=== PATIENT | male | born 1965 | race Caucasian/White ===

== ENCOUNTER → 2019-09-09 09:56 | Outpatient (BNVA) | payer MEDICARE, MEDICAID, SELFPAY | PROVIDERS: Family Provider Family Medicine; PCP Family Medicine; Visit Provider Specialist | DX: F31.9 Bipolar disorder, unspecified (principal); G40.309 Generalized idiopathic epilepsy and epileptic syndromes, not intractable, without status epilepticus; F81.9 Developmental disorder of scholastic skills, unspecified; D69.6 Thrombocytopenia, unspecified | CPT/HCPCS: 99214 ==

== ENCOUNTER 2019-09-09 10:58 | Outpatient (CLI) | payer MEDICARE, MEDICAID, SELFPAY ==
[2019-09-09 11:34] LABS: Basophils % 0.3 %; Eosinophils # 0.3 10^3/uL (0.0-0.8); Eosinophils % 3.8 %; Hematocrit 39.8 % (42.0-52.0); Hemoglobin 12.2 g/dL (11.7-16.6); Lymphocytes # 1.5 10^3/uL (0.8-4.8); Lymphocytes % 21.3 %; Mean Corpuscular HGB Conc 30.7 g/dL (30.0-36.0); Mean Corpuscular Hemoglobin 29.7 pg (28.0-34.0); Mean Corpuscular Volume 96.8 fL (80-94); Mean Platelet Volume 13.2 fL (7.4-10.4); Monocytes # 0.5 10^3/uL (0.2-0.9); Neutrophils # 4.7 10^3/uL (1.8-7.7); Neutrophils % 67.2 %; Nucleated Red Blood Cells % 0 %; Platelet Count 118 10^3/cmm (130-400); Red Blood Count 4.11 10^6/uL (4.1-5.3); Red Cell Distribution Width 12.3 % (12.1-15.1)
[2019-09-09 12:11] LABS: Alanine Aminotransferase 16 U/L (0-41); Albumin Level 3.7 g/dL (3.5-5.2); Alkaline Phosphatase 60 IU/L (40-130); Anion Gap 12.5 (5-19); Aspartate Amino Transferase 21 U/L (0-40); Blood Urea Nitrogen 12 mg/dL (6-20); Calcium 9.4 mg/dL (8.5-10.5); Carbon Dioxide 27 mmol/L (22-29); Chloride 103 mmol/L (98-107); Globulin 3.8 g/dL (1.3-4.6); Glomerular Filtration Rate 87.6 mL/min (90-130); Glucose 118 mg/dL (65-115); Potassium 4.5 mmol/L (3.5-5.1); Sodium 138 mmol/L (136-145); Thyroid Stimulating Hormone 1.63 uIU/mL (0.27-4.20); Total Bilirubin 0.2 mg/dL (0.15-1.2); Total Protein 7.5 g/dL (6.6-8.7)
[2019-09-09 12:29] LABS: Estmated Average Glucose 123; Hemoglobin A1C 5.9 % (4.0-6.0)
== END 2019-09-09 10:59 | disposition home or self-care (01) ==
LOC: LAB 11:02
PROVIDERS: Family Provider Family Medicine; PCP Family Medicine; Visit Provider Specialist
DX: Z00.00 Encounter for general adult medical examination without abnormal findings (principal)
CPT/HCPCS: 80053; 83036; 84443; 85025

== ENCOUNTER → 2020-03-15 10:57 | Outpatient (BNVA) | payer MEDICARE, MEDICAID, SELFPAY | PROVIDERS: Family Provider Family Medicine; PCP Family Medicine; Visit Provider Specialist | DX: G40.309 Generalized idiopathic epilepsy and epileptic syndromes, not intractable, without status epilepticus (principal) | CPT/HCPCS: 99213 ==

== ENCOUNTER → 2020-09-14 09:36 | Outpatient (BNVA) | payer MEDICARE, MEDICAID, SELFPAY | PROVIDERS: Family Provider Family Medicine; PCP Family Medicine; Visit Provider Specialist | DX: G40.309 Generalized idiopathic epilepsy and epileptic syndromes, not intractable, without status epilepticus (principal); D69.6 Thrombocytopenia, unspecified | CPT/HCPCS: 36415; 85025; 99214 ==

== ENCOUNTER 2020-09-14 11:54 | Outpatient (CLI) | payer MEDICARE, MEDICAID, SELFPAY ==
[2020-09-14 12:49] LABS: Basophils % 0.6 %; Eosinophils # 0.3 10^3/uL (0.0-0.8); Eosinophils % 4.2 %; Hematocrit 39.6 % (42.0-52.0); Hemoglobin 12.4 g/dL (11.7-16.6); Lymphocytes # 1.9 10^3/uL (0.8-4.8); Lymphocytes % 26.4 %; Mean Corpuscular HGB Conc 31.3 g/dL (30.0-36.0); Mean Corpuscular Hemoglobin 30.3 pg (28.0-34.0); Mean Corpuscular Volume 96.8 fL (80-94); Mean Platelet Volume 12.9 fL (7.4-10.4); Monocytes # 0.5 10^3/uL (0.2-0.9); Monocytes % 7.3 %; Neutrophils # 4.33 10^3/uL (1.8-7.7); Neutrophils % 61.1 %; Nucleated Red Blood Cells % 0 %; Platelet Count 124 10^3/cmm (130-400); Red Blood Count 4.09 10^6/uL (4.1-5.3); Red Cell Distribution Width 12.3 % (12.1-15.1); White Blood Count 7.1 10^3/uL (4.0-10.0)
== END 2020-09-14 11:55 | disposition home or self-care (01) ==
LOC: LAB 11:59
PROVIDERS: Family Provider Family Medicine; PCP Family Medicine; Visit Provider Specialist
DX: G40.309 Generalized idiopathic epilepsy and epileptic syndromes, not intractable, without status epilepticus (principal); D69.6 Thrombocytopenia, unspecified
CPT/HCPCS: 36415; 85025

== ENCOUNTER → 2021-03-15 09:12 | Outpatient (BNVA) | payer MEDICARE, MEDICAID, SELFPAY | PROVIDERS: Family Provider Family Medicine; PCP Family Medicine; Visit Provider Specialist | DX: G40.309 Generalized idiopathic epilepsy and epileptic syndromes, not intractable, without status epilepticus (principal); F32.9 Major depressive disorder, single episode, unspecified | CPT/HCPCS: 99214; 99215 ==

== ENCOUNTER → 2021-07-18 10:35 | Outpatient (BNVA) | payer MEDICARE, MEDICAID, SELFPAY | PROVIDERS: Family Provider Family Medicine; PCP Family Medicine; Visit Provider Specialist | DX: G40.309 Generalized idiopathic epilepsy and epileptic syndromes, not intractable, without status epilepticus (principal); F81.9 Developmental disorder of scholastic skills, unspecified; F32.9 Major depressive disorder, single episode, unspecified | CPT/HCPCS: 99213; 99214 ==

== ENCOUNTER → 2021-12-20 10:35 | Outpatient (BNVA) | payer MEDICARE, MEDICAID, SELFPAY | PROVIDERS: Family Provider Family Medicine; PCP Family Medicine; Visit Provider Specialist | DX: G40.309 Generalized idiopathic epilepsy and epileptic syndromes, not intractable, without status epilepticus (principal); F42.9 Obsessive-compulsive disorder, unspecified; F31.9 Bipolar disorder, unspecified | CPT/HCPCS: 99214; 99215 ==

== ENCOUNTER → 2022-01-22 09:58 | Outpatient (BNVA) | payer MEDICARE, MEDICAID, SELFPAY | PROVIDERS: Family Provider Family Medicine; PCP Family Medicine; Visit Provider Specialist | DX: F32.9 Major depressive disorder, single episode, unspecified (principal); F42.9 Obsessive-compulsive disorder, unspecified; F81.9 Developmental disorder of scholastic skills, unspecified; G40.309 Generalized idiopathic epilepsy and epileptic syndromes, not intractable, without status epilepticus; D69.6 Thrombocytopenia, unspecified | CPT/HCPCS: 99213; 99214 ==

== ENCOUNTER → 2022-07-23 09:24 | Outpatient (BNVA) | payer MEDICARE, MEDICAID, SELFPAY | PROVIDERS: PCP Family Medicine; Visit Provider Specialist | DX: G40.309 Generalized idiopathic epilepsy and epileptic syndromes, not intractable, without status epilepticus (principal); G51.39 Clonic hemifacial spasm, unspecified | CPT/HCPCS: 99213 ==

== ENCOUNTER → 2023-07-16 15:03 | Outpatient (BNVA) | payer MEDICARE, MEDICAID, SELFPAY | PROVIDERS: PCP Family Medicine; Visit Provider Specialist | DX: G40.309 Generalized idiopathic epilepsy and epileptic syndromes, not intractable, without status epilepticus (principal); J44.0 Chronic obstructive pulmonary disease with (acute) lower respiratory infection; J20.9 Acute bronchitis, unspecified | CPT/HCPCS: 99214 ==

== ENCOUNTER → 2024-07-22 08:36 | Outpatient (BNVA) | payer MEDICARE, MEDICAID, SELFPAY | PROVIDERS: PCP Family Medicine; Visit Provider Specialist | DX: G40.309 Generalized idiopathic epilepsy and epileptic syndromes, not intractable, without status epilepticus (principal); J44.0 Chronic obstructive pulmonary disease with (acute) lower respiratory infection; J20.9 Acute bronchitis, unspecified; G31.84 Mild cognitive impairment of uncertain or unknown etiology | CPT/HCPCS: 36415; 80053; 84439; 84443; 85025; 99214 ==

== ENCOUNTER 2024-12-08 18:24 | Inpatient (IN) | payer MEDICARE, SELFPAY ==
[2024-12-08] VITALS (11 sets, daily range): BP systolic 134–171; BP diastolic 60–96; PULSE 81–93; RESP 18–20; TEMP 36.9; O2SAT 94–96; BMI 33.0
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
[2024-12-08 19:31] LABS: Basophils % 0.4 %; Eosinophils # 0.2 10^3/uL (0.0-0.8); Eosinophils % 1.5 %; Lymphocytes # 1.2 10^3/uL (0.8-4.8); Lymphocytes % 11.1 %; Mean Corpuscular Hemoglobin 30.6 pg (27-33); Mean Corpuscular Volume 98.5 fl (82-101); Mean Platelet Volume 12.2 fL (7.4-10.4); Monocytes # 0.6 10^3/uL (0.2-0.9); Monocytes % 5.8 %; Neutrophils # 8.56 10^3/uL (1.8-7.7); Neutrophils % 80.6 %; Nucleated Red Blood Cells % 0 %; Platelet Count 129 10^3/cmm (157-399); Red Blood Count 3.96 10^6/uL (3.85-5.65); Red Cell Distribution Width 12.6 % (12.1-15.1); White Blood Count 10.62 10^3/uL (3.29-11.43)
[2024-12-08 19:51] LABS: Acetaminophen < 5.0 ug/mL (10-30); Alanine Aminotransferase 12 U/L (0-41); Alkaline Phosphatase 67 U/L (40-130); Anion Gap 16.2 (5-19); Aspartate Amino Transferase 17 U/L (0-40); Blood Urea Nitrogen 11 mg/dL (8-23); Calcium 8.9 mg/dL (8.5-10.5); Carbon Dioxide 24 mmol/L (22-29); Chloride 101 mmol/L (98-107); Creatinine Clr Calc Pharmacy 95.0338; Globulin 3.5 g/dL (1.3-4.6); Glomerular Filtration Rate 76.2 mL/min (90-130); Glucose 106 mg/dL (65-115); Osmolality Calculated 284 mOsm/kg (285-295); Potassium 4.2 mmol/L (3.5-5.1); Salicylate < 0.3 mg/dL (3-10); Sodium 137 mmol/L (136-145); Total Bilirubin 0.2 mg/dL (0.15-1.2); Total Protein 7.5 g/dL (6.6-8.7)
[2024-12-08 19:52] LABS: Alcohol Level < 10 mg/dL (0-10)
[2024-12-08] MEDS: ketamine 100 mg/mL Inj 5 mL 417.3 MG IM (20:38)
[2024-12-08] MEDS: LORazepam 1 MG/0.5 ML injection 2 MG IM (20:38)
--- NOTE | 2024-12-08 21:00 | PC.NURSE ---
Upon entering patient room, patient against the wall brandishing a chair in the air with security guards, Gwyn and Jeferson, in front of him. Patient stating I want to leave. Verbal de-escalation attempted with no success. Clemencia Avina RN, Gio, RN, Shukri, RN, Haven, NT, and this nurse at bedside. Chair removed from patient's crime scene evidence technician by security and removed from room. Patient moved to restraint bed using SAFE maneuvers. Orders received from Dr. Deleon for ketamine IM.
[2024-12-09 06:00] VITALS: BP 152/66; PULSE 89; RESP 20; TEMP 37.6; O2SAT 93
[2024-12-09] MEDS: lamoTRIgine 100 mg Tablet PO ×2 (08:21→18:07)
[2024-12-09] MEDS: cholecalciferol (vitamin D3) 1,000 unit Tablet 2000 UNIT PO (08:21)
[2024-12-09] MEDS: levothyroxine 88 mcg Tablet PO (08:21)
[2024-12-09] MEDS: citalopram 20 mg Tablet PO (08:21)
[2024-12-09] MEDS: CLONazepam 0.5 mg Tablet PO (08:21)
[2024-12-09] MEDS: multivitamin therapeutic Tablet 1 TAB PO (08:21)
[2024-12-09] MEDS: cloNIDine 0.1 mg Tablet PO (08:22)
--- NOTE | 2024-12-09 11:22 | PC.OT ---
OT bharath held per nursing
[2024-12-09 14:00] VITALS: BP 131/71; PULSE 78; RESP 16; TEMP 36.3; O2SAT 95
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
[2024-12-09 20:28] VITALS: BP 141/75; PULSE 71; RESP 17; TEMP 36.9; O2SAT 97
[2024-12-09 21:29] VITALS: BP 141/75
[2024-12-09] MEDS: cloNIDine 0.1 mg Tablet 0.2 MG PO (21:29)
[2024-12-09] MEDS: zonisamide 100 MG Capsule 500 MG PO (21:30)
[2024-12-09] MEDS: CLONazepam 1 mg Tablet PO (21:30)
[2024-12-10 06:00] VITALS: BP 119/79; PULSE 78; RESP 17; TEMP 37; O2SAT 97
[2024-12-10 08:35] VITALS: BP 119/79
[2024-12-10] MEDS: cloNIDine 0.1 mg Tablet PO (08:35)
[2024-12-10] MEDS: multivitamin therapeutic Tablet 1 TAB PO (08:35)
[2024-12-10] MEDS: levothyroxine 88 mcg Tablet PO (08:35)
[2024-12-10] MEDS: cholecalciferol (vitamin D3) 1,000 unit Tablet 2000 UNIT PO (08:35)
[2024-12-10] MEDS: CLONazepam 0.5 mg Tablet PO (08:35)
[2024-12-10] MEDS: lamoTRIgine 100 mg Tablet PO ×2 (08:35→17:13)
[2024-12-10 14:00] VITALS: BP 132/70; PULSE 73; RESP 16; TEMP 37.1; O2SAT 95
--- NOTE | 2024-12-10 15:04 | PC.NURSE ---
Instructed patient that mother was here to visit and he said I don't want to see no one . I told him that she is currently visiting with the DrYuridia and she would like to visit with him. He covered his head with the blanket and said No . KALI said patient told her that he said nobody cares.
--- NOTE | 2024-12-10 17:00 | P.NPUPN_ITS ---
Subjective NPU 2 Subjective: Patient presented today reporting that things were going fine. But when he realized he was not going to be discharged he tried to create a stalemate where he was going to refuse to do anything and I would just stay here forever and never go home. We discussed the fact that his mother and I had a lengthy conversation and that she is the guardian and were both in agreement than him having the Invega as a starting point for him getting better and having better self-management is our best plan. We discussed the fact that we just wanted to see if there was any problems or side effects with the medication. We discussed the goal of him taking the medication today and then tomorrow morning and that if there were no problems and he continued to manage his behavior as he has that his guardian/mom would like to take him home and we would be agreeable to that. 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 He ultimately stopped his refusal of the medication and took all of his medications and was able to do this without physical aggression though he did get very frustrated in 1 point. He denied any side effects to his medications. Mental Status Exam 2 MSE Comments: This is an obese white male in hospital scrubs with poor grooming and eye contact. No abnormal movements except for psychomotor retardation and some shakiness. Cooperative with exam in mild to moderate distress. Speech was limited and decreased rate and volume and somewhat childlike. Mood described as okay, affect anxious and guarded. Thought process linear. Thought content: Patient denied suicidal or homicidal ideation, there were no delusions reported or noted, he denied any auditory or visual hallucinations. Attention and concentration were limited and memory was unreliable but none were formally tested. He is alert and oriented times person and place. Insight, judgment and impulse control are impaired intellectual ability is impaired. Vitals/I&O/Wt Last Vital Signs Temp 98.7 F 12/10/24 14:00 Pulse 73 12/10/24 14:00 Resp 16 12/10/24 14:00 BP 132/70 12/10/24 14:00 Pulse Ox 95 12/10/24 14:00 O2 Del Method Room Air 12/10/24 06:00 O2 Flow Rate 2 12/08/24 22:26 Weight last 48 hrs Weight 104.326 kg Data NPU 12/08/24 19:17 12/08/24 19:17 A&P Assessment and plan (1) Obsessive compulsive disorder: (2) Bipolar affective disorder: (3) Aggressive behavior: (4) Self-harming behavior: (5) Intellectual disability: Plan This is a 59-year-old white male with intellectual disability and the common issues with poor impulse control and low frustration tolerance that has led to aggression and agitation that are not manageable by his mother at home. He is likely in need of some changes in medications. Consideration of tapering or discontinue of the Klonopin which is problematic as he gets older. Additionally adding a more stable on potent mood stabilizer/antipsychotic would also be appropriate. He is a poor historian and we will need to lean on his guardian for assistance. 1. Continue current medication. Likely begin tapering Klonopin and initiate either Abilify or Invega after approval from mother. Invega 3 mg p.o. daily. 2. Encourage individual, group and milieu therapy. 3. Continue every 15 minute checks for safety. 4. Obtain collateral information. Had a lengthy discussion with his guardian/80-year-old mother who endorsed that things have gotten bad for them since her a couple years ago. She reports that he has had periods like this where he has been more agitated and more difficult to manage on 4-6 occasions. And she reports that they have mostly happened since the of his father. Also he has seemed more forgetful and we discussed the possibility that some of this are the subtle signs of the beginning of a dementing process. She reported that he had significant success with Risperdal in the past and that he did so well on it but they ultimately discontinued it. We discussed the benefit of Invega having 1 month, 3-month and every 6-month injection options. We discussed this against the backdrop of him possibly having growing inability to follow through with taking medications as prescribed. We also talked about diagnostic issues regarding bipolar disorder versus borderline personality disorder versus intellectual disability with the poor impulse control and low frustration tolerance that comes with those conditions as well as the high rate of dementia especially earlier onset in intellectually disabled individuals. PDMP PDMP Reviewed: Not Reviewed Involuntary Hold Information 2 Hold Status: Legal Status: Active Guardianship Attestations NPU 2 Medical Necessity Statement*: Inpatient hospitalization is medically necessary and the clinically appropriate intervention at this time. We will monitor/initiate medications and make changes as indicated. Likely discharge tomorrow. Coding Level of Care Code Acute Code for Chg Fwd Diagnoses Obsessive compulsive disorder F42.9 Bipolar affective disorder F31.9 Aggressive behavior R46.89 Self-harming behavior Intellectual disability F79
[2024-12-10] MEDS: paliperidone ER 3 mg Tablet PO (17:13)
[2024-12-10] MEDS: citalopram 20 mg Tablet PO (17:13)
[2024-12-10] MEDS: lactobacillus 1 Tablet 1 TAB PO (17:13)
--- NOTE | 2024-12-10 20:11 | PC.NURSE ---
when getting pt vitals he told me he is not doing anything until the doctor comes and sees him nurse notified
[2024-12-10] MEDS: CLONazepam 1 mg Tablet PO (21:56)
[2024-12-10] MEDS: hyDROXYzine 25 mg Capsule 50 MG PO (21:56)
[2024-12-10] MEDS: zonisamide 100 MG Capsule 500 MG PO (21:56)
[2024-12-10 21:57] VITALS: BP 132/70
[2024-12-10] MEDS: cloNIDine 0.1 mg Tablet 0.2 MG PO (21:57)
[2024-12-11 06:00] VITALS: BP 137/70; PULSE 84; RESP 16; O2SAT 95
[2024-12-11] MEDS: paliperidone ER 3 mg Tablet PO (08:39)
[2024-12-11] MEDS: cholecalciferol (vitamin D3) 1,000 unit Tablet 2000 UNIT PO (08:39)
[2024-12-11] MEDS: lamoTRIgine 100 mg Tablet PO (08:40)
[2024-12-11] MEDS: lactobacillus 1 Tablet 1 TAB PO (08:40)
[2024-12-11] MEDS: multivitamin therapeutic Tablet 1 TAB PO (08:40)
[2024-12-11 08:41] VITALS: BP 137/70
[2024-12-11] MEDS: cloNIDine 0.1 mg Tablet PO (08:41)
[2024-12-11] MEDS: citalopram 20 mg Tablet PO (08:41)
[2024-12-11] MEDS: CLONazepam 0.5 mg Tablet PO (08:41)
[2024-12-11] MEDS: levothyroxine 88 mcg Tablet PO (08:41)
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
[2024-12-11 09:13] VITALS: BP 113/62; PULSE 90; RESP 18; TEMP 36.6; O2SAT 95
[2024-12-11 09:15] VITALS: BP 113/62; PULSE 90; RESP 18; TEMP 36.6; O2SAT 95
--- NOTE | 2024-12-11 10:52 | DCPLANNER ---
Imm was printed and given to pts guardian and copy placed in file.
--- NOTE | 2024-12-11 13:33 | PC.NURSE ---
Discharge paperwork reviewed with mother. All questions answered. Patient was discharged home by private vehicle.
== END 2024-12-11 13:24 | disposition home or self-care (01) | DRG 886 ==
LOC: ER 20:22 → NP 21:34
PROVIDERS: Admitting Provider Psychiatry & Neurology Psychiatry; Emergency Provider Physician Assistant; PCP Family Medicine; Visit Provider Psychiatry & Neurology Psychiatry
DX: F91.1 Conduct disorder, childhood-onset type (principal); R45.851 Suicidal ideations; F63.9 Impulse disorder, unspecified; F31.9 Bipolar disorder, unspecified; F79 Unspecified intellectual disabilities; R45.88 Nonsuicidal self-harm; F42.9 Obsessive-compulsive disorder, unspecified
CPT/HCPCS: 36415; 80053; 80175; 80307; 85025; 96372; 97165; 99285; J2060; J3490; J9999

== ENCOUNTER → 2025-01-07 12:05 | Outpatient (BNVA) | payer MEDICARE, SELFPAY | PROVIDERS: PCP Family Medicine; Visit Provider Specialist | DX: G40.309 Generalized idiopathic epilepsy and epileptic syndromes, not intractable, without status epilepticus (principal); J44.0 Chronic obstructive pulmonary disease with (acute) lower respiratory infection; J20.9 Acute bronchitis, unspecified; G31.84 Mild cognitive impairment of uncertain or unknown etiology | CPT/HCPCS: 99214 ==

== ENCOUNTER → 2025-04-19 13:01 | Outpatient (BNVA) | payer MEDICARE, MEDICAID, SELFPAY | PROVIDERS: PCP Family Medicine; Visit Provider Specialist | DX: G40.309 Generalized idiopathic epilepsy and epileptic syndromes, not intractable, without status epilepticus (principal); J44.0 Chronic obstructive pulmonary disease with (acute) lower respiratory infection; J20.9 Acute bronchitis, unspecified; G31.84 Mild cognitive impairment of uncertain or unknown etiology; D69.6 Thrombocytopenia, unspecified; Z79.899 Other long term (current) drug therapy | CPT/HCPCS: 99214 ==